=== PATIENT | male | born 1975 | race African-American/Black ===

== ENCOUNTER 2019-03-05 11:33 | Day surgery (SDC) | payer OTHER ==
[2019-03-04 16:18] VITALS: BMI 23.5
[2019-03-05 13:56] VITALS: TEMP 97.9
[2019-03-05 15:05] VITALS: BP 112/62; PULSE 54
== END 2019-03-05 15:05 | disposition home or self-care (01) ==
LOC: JASU-ENDO 11:33
PROVIDERS: ATTEND Internal Medicine Gastroenterology
PROC: 0DJD8ZZ Inspection of Lower Intestinal Tract, Via Natural or Artificial Opening Endoscopic (ICD-10-PCS; principal; 2019-03-05 11:30)
DX: R10.9 Unspecified abdominal pain (principal); R19.4 Change in bowel habit; K64.8 Other hemorrhoids